=== PATIENT | male | born 1995 | race African-American/Black ===

== ENCOUNTER 2017-11-16 14:53 | Emergency (ER) | payer BC ==
[2017-11-16] MEDS ORDERED: CYCLOBENZAPRINE 10 MG TAB ONE (15:56)
[2017-11-16] MEDS ORDERED: HYDROCODONE/APAP 10/325 TAB ONE (15:57)
[2017-11-16] MEDS ORDERED: IBUPROFEN 200 MG TAB PO ONE (15:57)
--- NOTE | 2017-11-16 17:46 | ER ---
Nurse's Notes [facility] Name: Dillon Bowers Jr Age: 22 yrs Sex: Male : 1995 Arrival Date: 11/16/2017 Time: 14:56 Bed 27 Private MD: Holden Arredondo R Diagnosis: Low back pain Presentation: 11/16 15:13 Presenting complaint: Patient states: Patient states he was working on laying concrete ae1 and felt a 'pop" in his lower back and is now experiencing severe pain. Transition of care: patient was not received from another setting of care. Onset of symptoms was November 16, 2017 at 13:00. Risk Assessment: Do you want to hurt yourself or someone else? Patient reports no desire to harm self or others. 15:13 Method Of Arrival: Wheelchair ae1 15:13 Acuity: AMBAR 4 ae1 15:16 Initial Sepsis Screen: Does the patient meet any 2 criteria? No. Patient's initial ae1 sepsis screen is negative. Does the patient have a suspected source of infection? No. Patient's initial sepsis screen is negative. Care prior to arrival: None. Triage Assessment: 15:17 General: Appears in no apparent distress. uncomfortable, Behavior is cooperative, ae1 anxious. Pain: Complains of pain in lumbar area, left low back, left mid back, right mid back and right low back Pain currently is 10 out of 10 on a pain scale. Quality of pain is described as spasms. Musculoskeletal: no visible deformity or swelling. 16:00 EENT: No deficits noted. Neuro: Level of Consciousness is alert, obeys commands, rk2 Oriented to person, place, time, situation. Respiratory: Airway is patent Respiratory effort is even, unlabored, Respiratory pattern is regular, symmetrical. Derm: Skin is pink, warm \\T\\ dry. Historical: - Allergies: 15:15 No Known Allergies; ae1 - Home Meds: 15:15 None [Active]; ae1 - PMHx: 15:15 None; ae1 - PSHx: 15:15 oral surgery; ae1 - Immunization history:: Flu vaccine is not up to date. - Social history:: Smoking status: Patient uses tobacco products, smokes one pack cigarettes per day. - Ebola Screening: : Patient negative for fever greater than or equal to 101.5 degrees Fahrenheit, and additional compatible Ebola Virus Disease symptoms Patient denies exposure to infectious person. Screenin:16 Abuse screen: Denies threats or abuse. Nutritional screening: No deficits noted. ae1 Tuberculosis screening: No symptoms or risk factors identified. Fall Risk None identified. Assessment: 16:30 Neuro: No deficits noted. Level of Consciousness is alert, obeys commands, Oriented to rk2 person, place, time, situation. 16:30 Respiratory: Airway is patent Trachea midline Respiratory effort is even, unlabored, rk2 Respiratory pattern is regular, symmetrical. Derm: Skin is pink, warm \\T\\ dry. Musculoskeletal: Reports pain in back and right low back and right mid back and left mid back and left low back and lumbar area. 16:50 Reassessment: Pt. taken to xray. rk2 17:03 Reassessment: Pt. returned from CT. rk2 Vital Signs: 15:14 BP 112 / 83; Pulse 92; Resp 19; Temp 98(O); Pulse Ox 100% on R/A; Weight 117.93 kg (R); ae1 Pain 10/10; 18:00 BP 124 / 62; Pulse 88; Resp 17; Pulse Ox 99% on R/A; rk2 ED Course: 14:56 Patient arrived in ED. mr 14:56 Holden Arredondo MD is Private Physician. mr 15:14 Triage completed. ae1 15:16 Arm band placed on right wrist. ae1 15:20 Dee Gracia, [place] is Primary Nurse. rk2 15:21 Perry Oropeza NP is PHCP. pm1 15:21 Tino Barone MD is Attending Physician. pm1 16:01 Patient has correct armband on for positive identification. Bed in low position. Call rk2 light in reach. Side rails up X2. 16:48 Lumbar Spine (3 Views) XRAY Sent. rk2 18:17 No provider procedures requiring assistance completed. Patient did not have IV access rk2 during this emergency room visit. 18:31 Lumbar Spine (3 Views) XRAY In Process Unspecified. EDMS Administered Medications: 15:59 Drug: Ibuprofen 600 mg Route: PO; rk2 18:10 Follow up: Response: No adverse reaction rk2 16:00 Drug: [place] 10 mg-325 mg 1 tabs Route: PO; rk2 18:11 Follow up: Response: No adverse reaction rk2 16:00 Drug: Flexeril 10 mg Route: PO; rk2 18:10 Follow up: Response: No adverse reaction rk2 Outcome: 17:46 Discharge ordered by . pm1 18:17 Discharged to home via wheelchair. rk2 18:17 Condition: good 18:17 Discharge instructions given to patient, Prescriptions given X 3. 18:20 Patient left the ED. rk2 Signatures: Dispatcher [employer] Karma Hodge JohnnaPerry, RODERICK BULK PICKER pm1 Parveen Justin, [place] RN ae1 Dee Gracia RN RN rk2 Corrections: (The following items were deleted from the chart) 15:16 15:14 Pulse 92bpm; Resp 19bpm; Pulse Ox 100% RA; Temp 98F Oral; 117.93 kg Reported; ae1 Pain 04/02; ae1
--- NOTE | 2017-11-16 17:46 | EDPHYS ---
Physician Documentation [facility] Name: Dillon Bowers Jr Age: 22 yrs Sex: Male : 1995 Arrival Date: 11/16/2017 Time: 14:56 Bed 27 Private MD: Holden Arredondo R ED Physician Tino Barone HPI: 11/16 16:02 This 22 yrs old Black Male presents to ER via Wheelchair with complaints of Low Back pm1 Pain. 16:02 The patient presents with pain that is acute. The symptoms are located in the low back. pm1 Onset: The symptoms/episode began/occurred yesterday. The pain does not radiate. Associated signs and symptoms: Pertinent negatives: abdominal pain, chest pain, dysuria, fever, numbness, tingling, weakness. The problem was sustained when bending over. Modifying factors: The patient symptoms are alleviated by remaining still, specific position, the patient symptoms are aggravated by bending, movement. Severity of symptoms: in the emergency department the symptoms are actually worse. The patient has not experienced similar symptoms in the past. Patient lifting concrete bags yesterday and noticed a little soreness in his back. Today patient was getting off a ladder and felt a pop in his lower back in the same area of soreness. No incontinence, numbness, tingling, or radiation of pain. Historical: - Allergies: 15:15 No Known Allergies; ae1 - Home Meds: 15:15 None [Active]; ae1 - PMHx: 15:15 None; ae1 - PSHx: 15:15 oral surgery; ae1 - Immunization history:: Flu vaccine is not up to date. - Social history:: Smoking status: Patient uses tobacco products, smokes one pack cigarettes per day. - Ebola Screening: : Patient negative for fever greater than or equal to 101.5 degrees Fahrenheit, and additional compatible Ebola Virus Disease symptoms Patient denies exposure to infectious person. ROS: 16:02 Constitutional: Negative for fever, chills, and weight loss, Eyes: Negative for injury, pm1 pain, redness, and discharge, ENT: Negative for injury, pain, and discharge, Neck: Negative for injury, pain, and swelling, Cardiovascular: Negative for chest pain, palpitations, and edema, Respiratory: Negative for shortness of breath, cough, wheezing, and pleuritic chest pain, Abdomen/GI: Negative for abdominal pain, nausea, vomiting, diarrhea, and constipation. 16:02 : Negative for injury, bleeding, discharge, and swelling, MS/Extremity: Negative for injury and deformity, Skin: Negative for injury, rash, and discoloration, Neuro: Negative for headache, weakness, numbness, tingling, and seizure. 16:02 Back: Positive for of the lumbar area, Pain. Exam: 16:02 Constitutional: This is a well developed, well nourished patient who is awake, alert, pm1 and in no acute distress. Head/Face: Normocephalic, atraumatic. Chest/axilla: Normal chest wall appearance and motion. Nontender with no deformity. No lesions are appreciated. Cardiovascular: Regular rate and rhythm with a normal S1 and S2. No gallops, murmurs, or rubs. Normal PMI, no JVD. No pulse deficits. Respiratory: Lungs have equal breath sounds bilaterally, clear to auscultation and percussion. No rales, rhonchi or wheezes noted. No increased work of breathing, no retractions or nasal flaring. Abdomen/GI: Soft, non-tender, with normal bowel sounds. No distension or tympany. No guarding or rebound. No evidence of tenderness throughout. 16:02 Skin: Warm, dry with normal turgor. Normal color with no rashes, no lesions, and no evidence of cellulitis. MS/ Extremity: Pulses equal, no cyanosis. Neurovascular intact. Full, normal range of motion. 16:02 Back: pain, of the lumbar area, normal spinal alignment noted, muscle spasm, is appreciated in the left low back. 16:02 Neuro: Orientation: is normal, Motor: is normal, moves all fours, strength is 5/5 in all extremities, Sensation: is normal, no obvious gross deficits, Deep tendon reflexes are 2+ (normal) in the right patellar, right Achilles, left patellar and left Achilles. Vital Signs: 15:14 BP 112 / 83; Pulse 92; Resp 19; Temp 98(O); Pulse Ox 100% on R/A; Weight 117.93 kg (R); ae1 Pain 10/10; 18:00 BP 124 / 62; Pulse 88; Resp 17; Pulse Ox 99% on R/A; rk2 MDM: 15:42 Patient medically screened. pm1 16:07 Data reviewed: vital signs. Data interpreted: Pulse oximetry: on room air is 100 %. pm1 Interpretation: normal. 17:44 Counseling: I had a detailed discussion with the patient and/or guardian regarding: the pm1 historical points, exam findings, and any diagnostic results supporting the discharge/admit diagnosis, radiology results, the need for outpatient follow up, For MRI of back if no improvement in symptoms, to return to the emergency department if symptoms worsen or persist or if there are any questions or concerns that arise at home. 11/16 15:51 Order name: Lumbar Spine (3 Views) XRAY pm1 Administered Medications: 15:59 Drug: Ibuprofen 600 mg Route: PO; rk2 18:10 Follow up: Response: No adverse reaction rk2 16:00 Drug: [place] 10 mg-325 mg 1 tabs Route: PO; rk2 18:11 Follow up: Response: No adverse reaction rk2 16:00 Drug: Flexeril 10 mg Route: PO; rk2 18:10 Follow up: Response: No adverse reaction rk2 Disposition: 18:45 Co-signature as Attending Physician, Tino Barone MD I agree with the assessment and kdr plan of care. Disposition: 11/16/17 17:46 Discharged to Home. Impression: Low back pain. - Condition is Stable. - Discharge Instructions: Back Pain, Adult, Back Injury Prevention, [id number]. - Prescriptions for Naprosyn 500 mg Oral Tablet - take 1 tablet by ORAL route 2 times per day take with food; 30 tablet. Tylenol- Codeine #3 300-30 mg Oral Tablet - take 2 tablets by ORAL route every 6 hours As needed; 20 tablet. Cyclobenzaprine 10 mg Oral Tablet - take 1 tablet by ORAL route every 8 hours As needed; 30 tablet. - Medication Reconciliation Form, Thank You Letter, Prescription Opioid Use form. - Follow up: Emergency Department; When: As needed; Reason: Worsening of condition. Follow up: Private Physician; When: 2 - 3 days; Reason: Recheck today's complaints, Continuance of care, Re-evaluation by your physician. - Problem is new. - Symptoms have improved. Signatures: Dispatcher [employer] EDMS Tino Barone MD MD kdr Marinas, Patrick, RODERICK LIBRARY SALES CONSULTANT pm1 Parveen Justin RN RN ae1 Dee Gracia RN RN rk2 Corrections: (The following items were deleted from the chart) 18:20 17:46 11/16/2017 17:46 Discharged to Home. Impression: Low back pain. Condition is rk2 Stable. Forms are Medication Reconciliation Form, Thank You Letter, Antibiotic Education, Prescription Opioid Use. Follow up: Emergency Department; When: As needed; Reason: Worsening of condition. Follow up: Private Physician; When: 2 - 3 days; Reason: Recheck today's complaints, Continuance of care, Re-evaluation by your physician. Problem is new. Symptoms have improved. pm1
[2017-11-16 18:28] VITALS: TEMP 98
[2017-11-16 18:29] VITALS: BP 124/62; O2SAT 99
--- NOTE | 2017-11-16 19:04 | RAD REPORT ---
EXAM DESCRIPTION: Lumbar Spine 3 Views CLINICAL HISTORY: Radiculopathy COMPARISON: None. FINDINGS: Vertebral body heights appear maintained. No compression fracture noted. Disc spaces are m aintained. No spondylolysis or spondylolisthesis. IMPRESSION: Negative study.
== END 2017-11-16 18:20 | disposition home or self-care (01) ==
LOC: ER 14:53
DX: M54.5 Low back pain (principal); F17.210 Nicotine dependence, cigarettes, uncomplicated
CPT/HCPCS: 72100; 99283

== ENCOUNTER 2017-11-17 14:18 | Emergency (ER) | payer BC ==
[2017-11-17] MEDS ORDERED: DIAZEPAM 5 MG TABLET ONE (15:21)
[2017-11-17] MEDS ORDERED: DEXAMETHASONE 10 MG/ML VIAL ONE (15:21)
[2017-11-17] MEDS ORDERED: KETOROLAC 30 MG/ML INJ ONE (15:21)
--- NOTE | 2017-11-17 16:18 | ER ---
Nurse's Notes [facility] Name: Dillon Bowers Jr Age: 22 yrs Sex: Male : 1995 Arrival Date: 11/17/2017 Time: 14:19 Bed 17 Private MD: Holden Arredondo R Diagnosis: Sciatica Presentation: 11/17 14:40 Presenting complaint: Patient states: Low back pain that started yesterday. Patient aj seen in this ER yesterday and DX with radiculopathy, sent home with RX. Transition of care: patient was not received from another setting of care. Onset of symptoms was November 16, 2017. Risk Assessment: Do you want to hurt yourself or someone else? Patient reports no desire to harm self or others. Care prior to arrival: None. 14:40 Method Of Arrival: Wheelchair aj 14:40 Acuity: AMBAR 4 aj 15:50 Initial Sepsis Screen: Does the patient meet any 2 criteria? No. Patient's initial em sepsis screen is negative. Does the patient have a suspected source of infection? No. Patient's initial sepsis screen is negative. Triage Assessment: 14:42 General: Appears in no apparent distress. uncomfortable, Behavior is calm, cooperative, aj appropriate for age. Pain: Complains of pain in low back area and buttocks. Neuro: Level of Consciousness is awake, alert, obeys commands, Oriented to person, place, time, situation, Appropriate for age. Respiratory: Airway is patent Respiratory effort is even, unlabored, Respiratory pattern is regular, symmetrical. Derm: Skin is intact, is healthy with good turgor, Skin is pink, warm \T\ dry. normal. Musculoskeletal: Circulation, motion, and sensation intact. Reports pain in low back area and buttocks. Historical: - Allergies: 14:42 No Known Allergies; aj - Home Meds: 14:42 None [Active]; aj - PMHx: 14:42 None; aj - PSHx: 14:42 oral surgery; aj - Immunization history:: Adult Immunizations up to date. - Social history:: Smoking status: Patient uses tobacco products, smokes one pack cigarettes per day. - Ebola Screening: : No symptoms or risks identified at this time. Screenin:49 Abuse screen: Denies threats or abuse. Nutritional screening: No deficits noted. em Tuberculosis screening: No symptoms or risk factors identified. Fall Risk None identified. Assessment: 14:50 General: Appears uncomfortable, Behavior is cooperative. Pain: Complains of pain in low em back area Pain radiates to right leg and left leg Pain currently is 10 out of 10 on a pain scale. Neuro: Level of Consciousness is awake, alert, obeys commands, Oriented to person, place, time, situation, Gait is unsteady, Tingling in right quadriceps and left quadriceps. Cardiovascular: Capillary refill < 3 seconds Patient's skin is warm and dry. Respiratory: Airway is patent Respiratory effort is even, unlabored, Respiratory pattern is regular, symmetrical. GI: Abdomen is round non-distended. : No signs and/or symptoms were reported regarding the genitourinary system. EENT: No signs and/or symptoms were reported regarding the EENT system. Derm: Skin is intact, Skin is pink, warm \T\ dry. Musculoskeletal: Range of motion: intact in all extremities. 15:10 Reassessment: Patient appears in no apparent distress at this time. I agree with above iw assessment by Irineo Mercedes LVN. 15:35 Reassessment: Patient appears in no apparent distress at this time. Patient and/or em family updated on plan of care and expected duration. Pain level reassessed. Patient is alert, oriented x 3, equal unlabored respirations, skin warm/dry/pink. Dr. Jones at bedside discussing POC. 16:21 Reassessment: Patient appears in no apparent distress at this time. Patient and/or em family updated on plan of care and expected duration. Pain level reassessed. Patient is alert, oriented x 3, equal unlabored respirations, skin warm/dry/pink. pt ambulated to restroom, tolerated well, c/o minimal pain. Vital Signs: 14:42 BP 114 / 70; Pulse 78; Resp 16; Temp 97.6; Pulse Ox 97% on R/A; Weight 117.93 kg; aj Height 5 ft. 10 in. (177.80 cm); Pain 9/10; 15:48 BP 123 / 79; Pulse 75; Resp 18; Pulse Ox 100% on R/A; em 14:42 Body Mass Index 37.31 (117.93 kg, 177.80 cm) ED Course: 14:19 Patient arrived in ED. mr 14:19 Holden Arredondo MD is Private Physician. mr 14:42 Triage completed. aj 14:42 Arm band placed on right wrist. Patient placed in an exam room. aj 14:45 Irineo Mercedes LVN is Primary Nurse. em 15:02 Maco Jones MD is Attending Physician. ps1 15:49 No provider procedures requiring assistance completed. em 15:50 Patient has correct armband on for positive identification. Bed in low position. Call em light in reach. Side rails up X2. Adult w/ patient. 15:50 Patient did not have IV access during this emergency room visit. em 16:14 Holden Arredondo MD is Referral Physician. ps1 Administered Medications: 15:26 Drug: TORadol 30 mg Route: IM; Site: left deltoid; em 15:47 Follow up: Response: No adverse reaction em 15:27 Drug: Decadron 10 mg Route: IM; Site: left deltoid; em 15:47 Follow up: Response: No adverse reaction; Pain is decreased em 15:28 Drug: Valium 5 mg Route: PO; em 15:47 Follow up: Response: No adverse reaction em Outcome: 16:17 Discharge ordered by MD. ps1 16:52 Discharge instructions given to patient, Instructed on discharge instructions, follow em up and referral plans. no drinking with medication, no driving heavy equipment, medication usage, Demonstrated understanding of instructions, follow-up care, medications, Prescriptions given X 3. 16:52 Discharged to home ambulatory. em 16:52 Condition: good 16:54 Patient left the ED. em Signatures: Fallon Paez RN RN aj Rivera, Maria mr Irineo Mercedes LVN LVN em Kisha Beck RN RN Maco Jones MD MD ps1
--- NOTE | 2017-11-17 16:18 | EDPHYS ---
Physician Documentation [facility] Name: Dillon Bowers Jr Age: 22 yrs Sex: Male : 1995 Arrival Date: 11/17/2017 Time: 14:19 Bed 17 Private MD: Holden Arredondo R ED Physician Maco Jones HPI: 11/17 16:24 This 22 yrs old Black Male presents to ER via Wheelchair with complaints of Back Pain. ps1 16:24 patient was working on concrete and framework in a house appx 3 days ago. Pain started ps1 after exertion. Pain localized to lower back radiating down both legs. Rated as moderate worse with ambulation. No fever, IVDA, immunocompromise, trauma. . Historical: - Allergies: 14:42 No Known Allergies; aj - Home Meds: 14:42 None [Active]; aj - PMHx: 14:42 None; aj - PSHx: 14:42 oral surgery; aj - Immunization history:: Adult Immunizations up to date. - Social history:: Smoking status: Patient uses tobacco products, smokes one pack cigarettes per day. - Ebola Screening: : No symptoms or risks identified at this time. ROS: 16:24 Constitutional: Negative for fever, chills, and weight loss, Eyes: Negative for injury, ps1 pain, redness, and discharge, Cardiovascular: Negative for chest pain, palpitations, and edema, Respiratory: Negative for shortness of breath, cough, wheezing, and pleuritic chest pain, Abdomen/GI: Negative for abdominal pain, nausea, vomiting, diarrhea, and constipation. 16:24 : Negative for injury, bleeding, discharge, and swelling, MS/Extremity: Negative for injury and deformity, Skin: Negative for injury, rash, and discoloration, Neuro: Negative for headache, weakness, numbness, tingling, and seizure. 16:24 Back: Positive for decreased range of motion. Exam: 16:24 Constitutional: This is a well developed, well nourished patient who is awake, alert, ps1 and in no acute distress. Head/Face: Normocephalic, atraumatic. Eyes: Pupils equal round and reactive to light, extra-ocular motions intact. Lids and lashes normal. Conjunctiva and sclera are non-icteric and not injected. Chest/axilla: Normal chest wall appearance and motion. Nontender with no deformity. No lesions are appreciated. Cardiovascular: Regular rate and rhythm. No gallops, murmurs, or rubs. Normal PMI, no JVD. No pulse deficits. Respiratory: Lungs have equal breath sounds bilaterally, clear to auscultation and percussion. No rales, rhonchi or wheezes noted. No increased work of breathing, no retractions or nasal flaring. Abdomen/GI: Soft, non-tender, with normal bowel sounds. No distension or tympany. No guarding or rebound. No evidence of tenderness throughout. 16:24 Back: pain, that is moderate, ROM is painful, normal spinal alignment noted, muscle spasm, is appreciated in the left low back and right low back. Vital Signs: 14:42 BP 114 / 70; Pulse 78; Resp 16; Temp 97.6; Pulse Ox 97% on R/A; Weight 117.93 kg; aj Height 5 ft. 10 in. (177.80 cm); Pain 9/10; 15:48 BP 123 / 79; Pulse 75; Resp 18; Pulse Ox 100% on R/A; em 14:42 Body Mass Index 37.31 (117.93 kg, 177.80 cm) aj MDM: 16:00 Patient medically screened. ps1 16:24 Data reviewed: vital signs, nurses notes. ED course: patient pain improved and was able ps1 to ambulate on own accord. . Administered Medications: 15:26 Drug: TORadol 30 mg Route: IM; Site: left deltoid; em 15:47 Follow up: Response: No adverse reaction em 15:27 Drug: Decadron 10 mg Route: IM; Site: left deltoid; em 15:47 Follow up: Response: No adverse reaction; Pain is decreased em 15:28 Drug: Valium 5 mg Route: PO; em 15:47 Follow up: Response: No adverse reaction em Disposition: 11/17/17 16:17 Discharged to Home. Impression: Sciatica. - Condition is Fair. - Discharge Instructions: Sciatica. - Prescriptions for Anaprox DS 550 mg Oral Tablet - take 1 tablet by ORAL route every 12 hours As needed; 20 tablet. Robaxin 500 mg Oral Tablet - take 2 tablet by ORAL route every 6 hours As needed; 40 tablet. Medrol (Adan) 4 mg Oral Tablets, Dose Pack - take 1 tablet by ORAL route as directed - follow package instructions; 1 packet. - Work release form, Medication Reconciliation Form, Thank You Letter, Antibiotic Education, Prescription Opioid Use form. - Follow up: Holden Arredondo MD; When: As needed; Reason: Further diagnostic work-up, Recheck today's complaints, Continuance of care, Re-evaluation by your physician. Follow up: Emergency Department; When: As needed; Reason: Worsening of condition, abnormalities in urination, defecation, or fever. . - Problem is new. - Symptoms have improved. Signatures: Fallon Paez, RN RN aj Irineo Mercedes, INSIDE PLANT SUPERVISOR INSIDE PLANT SUPERVISOR em Maco Jones MD MD ps1 Corrections: (The following items were deleted from the chart) 16:54 16:17 11/17/2017 16:17 Discharged to Home. Impression: Sciatica. Condition is Fair. em Forms are Medication Reconciliation Form, Thank You Letter, Antibiotic Education, Prescription Opioid Use. Follow up: Holden Arredondo; When: As needed; Reason: Further diagnostic work-up, Recheck today's complaints, Continuance of care, Re-evaluation by your physician. Follow up: Emergency Department; When: As needed; Reason: Worsening of condition, abnormalities in urination, defecation, or fever. . Problem is new. Symptoms have improved. ps1
[2017-11-17 17:18] VITALS: BP 123/79; TEMP 97.6; O2SAT 100
== END 2017-11-17 16:54 | disposition home or self-care (01) ==
LOC: ER 14:18
DX: M54.30 Sciatica, unspecified side (principal); F17.210 Nicotine dependence, cigarettes, uncomplicated
CPT/HCPCS: 96372; 99283; J1100

== ENCOUNTER 2019-07-27 13:36 | Emergency (ER) | payer BC, SELFPAY ==
[2019-07-27] MEDS ORDERED: MORPHINE 4 MG/ML SYR ONE ×2 (14:43→15:54)
[2019-07-27] MEDS ORDERED: BUPIVACAINE 0.5% PF 10 ML VIAL ONE (14:43)
[2019-07-27] MEDS ORDERED: ONDANSETRON 4 MG/2 ML VIAL ONE (14:43)
[2019-07-27] MEDS ORDERED: LIDOCAINE 1% MPF 30 ML VIAL ONE (14:44)
[2019-07-27] MEDS ORDERED: CLINDAMYCIN 900MG/D5W 900 MG/50 ML IVPB IV ONE (15:00)
[2019-07-27] MEDS ORDERED: NA CHLORIDE 0.9% 1,000 ML ONE (15:00)
[2019-07-27 15:16] LABS: Absolute Lymphocytes (CBC) 2.7 K/uL (0.7-4.9); Basophils % 0.9 % (0-1.3); Hematocrit 49.1 % (39.6-49.0); Lymphocytes % 22.4 % (15.3-44.8); MPV 8.9 fL (7.6-11.3); RBC Red Blood Cell Count 5.76 M/uL (4.33-5.43)
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
--- NOTE | 2019-07-27 15:42 | EDPHYS ---
Physician Documentation [facility] Name: Dillon Bowers Jr Age: 24 yrs Sex: Male : 1995 Arrival Date: 07/27/2019 Time: 13:38 Bed 17 Private MD: ED Physician Tino Barone HPI: 07/27 14:40 This 24 yrs old Black Male presents to ER via Ambulatory with complaints of Abscess, cp Facial Swelling. 14:40 Description: swollen, right facial cheek. Onset: The symptoms/episode began/occurred cp this morning, upon awakening. Possible cause(s): unknown. Associated signs and symptoms: Pertinent positives: right upper tooth pain, Pertinent negatives: discharge, drainage, fever. Historical: - Allergies: 13:56 No Known Allergies; ch - Home Meds: 13:56 None [Active]; ch - PMHx: 13:56 None; ch - Immunization history:: Adult Immunizations up to date, Last tetanus immunization: up to date Flu vaccine is not up to date. - Coronavirus screen:: The patient has NOT traveled to [place], [place], or [place] in the past 14 days. The patient has NOT had contact with known/suspected case of Coronavirus?. - Social history:: Smoking status: Patient denies any tobacco usage or history of. - Ebola Screening: : Patient negative for fever greater than or equal to 101.5 degrees Fahrenheit, and additional compatible Ebola Virus Disease symptoms Patient denies exposure to infectious person Patient denies travel to an Ebola-affected area in the 21 days before illness onset No symptoms or risks identified at this time. ROS: 14:45 Constitutional: Negative for body aches, chills, fever, poor PO intake. cp 14:45 Eyes: Negative for injury, pain, redness, and discharge. cp 14:45 ENT: Positive for Teeth pain Negative for drainage from ear(s), ear pain, sinus congestion, sinus pain, sore throat, difficulty swallowing, difficulty handling secretions. 14:45 Cardiovascular: Negative for chest pain, palpitations. 14:45 Respiratory: Negative for cough, shortness of breath, wheezing. 14:45 Abdomen/GI: Negative for abdominal pain, nausea, vomiting, and diarrhea. 14:45 Skin: Positive for swelling, of the right facial cheek. 14:45 Neuro: Negative for altered mental status, headache. 14:45 All other systems are negative. Exam: 14:55 Constitutional: The patient appears in no acute distress, alert, awake, non-toxic, well cp developed, well nourished, uncomfortable. 14:55 Head/face: Exam is negative for obvious evidence of injury or deformity, Noted is cp swelling, that is mild, of the right cheek, tenderness, that is moderate, of the right cheek. 14:55 Eyes: Periorbital structures: appear normal, Pupils: equal, round, and reactive to light and accomodation, Extraocular movements: intact throughout, Conjunctiva: normal, no exudate, no injection, Sclera: no appreciated abnormality, Lids and lashes: appear normal, bilaterally. 14:55 ENT: External ear(s): are unremarkable, Ear canal(s): are normal, clear, TM's: bulging, is not appreciated, bilaterally, dullness, bilaterally, erythema, is not appreciated, bilaterally, Nose: is normal, Mouth: Lips: moist, Oral mucosa: pink and intact, moist, abscess, that is moderate, of the gums, Posterior pharynx: Airway: no evidence of obstruction, patent, Tonsils: are normal in appearance, Dental exam: dental caries, that is moderate, fractured teeth are noted, specifically the upper right second bicuspid (#4), pain, that is moderate, specifically in the upper right second bicuspid (#4), Voice: is normal. 14:55 Neck: ROM/movement: is normal, is supple, without pain, no range of motions limitations, no nuchal rigidity. 14:55 Chest/axilla: Inspection: normal, Palpation: is normal, no crepitus, no tenderness. 14:55 Cardiovascular: Rate: normal, Rhythm: regular. 14:55 Respiratory: the patient does not display signs of respiratory distress, Respirations: normal, no use of accessory muscles, labored breathing, is not present, Breath sounds: are clear throughout, no decreased breath sounds, no stridor, no wheezing. 14:55 Abdomen/GI: Exam negative for discomfort, distension, guarding, Inspection: abdomen appears normal. 14:55 Skin: no rash present. Vital Signs: 13:56 BP 125 / 90; Pulse 77; Resp 16; Temp 98.3(O); Pulse Ox 99% on R/A; Weight 122.47 kg; ch Height 6 ft. (182.88 cm); Pain 8/10; 15:07 BP 134 / 92; Pulse 81; Resp 16; Pulse Ox 100% ; bp 16:02 BP 157 / 91; Pulse 70; Resp 16; Pulse Ox 100% ; bp 13:56 Body Mass Index 36.62 (122.47 kg, 182.88 cm) Procedures: 15:45 I \T\ D: Incision and drainage was performed for an abscess of the right upper outer cp gumline Anesthetized with 4 ccs of 1% lidocaine w/o epi and 0.5% Marcaine. Incised with #11 blade. Drained small amount purulent fluid. the patient tolerated the procedure well. MDM: 14:07 Patient medically screened. cp 15:40 Data reviewed: vital signs, nurses notes, lab test result(s). cp 15:40 Differential diagnosis: abscess, cellulitis. Counseling: I had a detailed discussion cp with the patient and/or guardian regarding: the historical points, exam findings, and any diagnostic results supporting the discharge/admit diagnosis, radiology results, the need for outpatient follow up, for definitive care, a dentist, to return to the emergency department if symptoms worsen or persist or if there are any questions or concerns that arise at home. Response to treatment: the patient's symptoms have markedly improved after treatment, and as a result, I will discharge patient. 02 14:41 Order name: CBC with Diff 07/27 14:41 Order name: BMP 07/27 15:27 Order name: CBC with Automated Diff; Complete Time: 15:42 [facility] 07/27 15:42 Interpretation: Normal except: WBC 11.9; RBC 5.76; HCT 49.1. cp / 15:48 Order name: Basic Metabolic Panel [facility] 07/27 14:41 Order name: IV; Complete Time: 14:54 cp Administered Medications: 14:50 Drug: NS 0.9% 1000 ml Route: IV; Rate: 1 bolus; Site: right antecubital; bp 15:55 Follow up: IV Status: Completed infusion; IV Intake: 1000ml bp 14:50 Drug: morphine 4 mg Route: IVP; Site: right antecubital; bp 15:54 Follow up: Response: Pain is decreased bp 14:50 Drug: Zofran 4 mg Route: IVP; Site: right antecubital; bp 15:54 Follow up: Response: No adverse reaction bp 14:50 Drug: Clindamycin 900 mg Route: IVPB; Infused Over: 30 mins; Site: right antecubital; bp 15:55 Follow up: IV Status: Completed infusion; IV Intake: 50ml bp 15:06 Drug: Lidocaine (1 %) 5 mg {Note: at b/s for provider.} Route: Infiltration; bp 15:06 Drug: Marcaine (0.5 %) 5 ml {Note: at b/s for provider.} Volume: 10 ml; Route: bp Infiltration; 15:54 Not Given (Other Intervention Used): HYDROcodone-acetaminophen 5 mg-325 mg 2 tabs PO bp once; RASS on ADMIN: Combtv4, Very Agttd3, Agttd2, Rstlss1, AlertClm0, Drwsy-1, Lt Sdtn-2, Mod Sdtn-3, Dp Sdtn-4, UnArsble-5 15:54 Drug: morphine 4 mg Route: IVP; Site: right antecubital; bp 15:55 Follow up: Response: Pain is decreased bp Disposition: 16:15 Chart complete. 07/28 14:55 Co-signature as Attending Physician, Tino Barone MD I agree with the assessment and kdr plan of care. Disposition: 07/27/19 15:41 Discharged to Home. Impression: Localized swelling, mass and lump of skin and subcutaneous tissue - right facial cheek, Tooth #4 abscess. - Condition is Stable. - Discharge Instructions: Dental Abscess. - Prescriptions for Clindamycin HCl 300 mg Oral Capsule - take 1 capsule by ORAL route every 6 hours for 10 days; 40 capsule. Tylenol- Codeine #3 300-30 mg Oral Tablet - take 2 tablets by ORAL route every 6 hours As needed; 20 tablet. - Medication Reconciliation Form, Thank You Letter, Antibiotic Education, Prescription Opioid Use form. - Follow up: Hai Mcgee DDS; When: 2 - 3 days; Reason: Recheck today's complaints. - Problem is new. - Symptoms have improved. Signatures: Dispatcher [employer] aMrilee Fry, Tino Bauer RN, ch, MD MD kdr Page, Corey, PA PA cp Peltier, Brian, RN RN bp Corrections: (The following items were deleted from the chart) 07/27 16:05 15:41 07/27/2019 15:41 Discharged to Home. Impression: Localized swelling, mass and bp lump of skin and subcutaneous tissue - right facial cheek; Tooth #4 abscess. Condition is Stable. Forms are Medication Reconciliation Form, Thank You Letter, Antibiotic Education, Prescription Opioid Use. Follow up: Hai Mcgee; When: 2 - 3 days; Reason: Recheck today's complaints. Problem is new. Symptoms have improved. cp
[2019-07-27 15:47] LABS: BUN Blood Urea Nitrogen 13 mg/dL (7-18); Bicarbonate 27 mmol/L (21-32); Glucose Level 72 mg/dL (74-106); Potassium 4.3 mmol/L (3.5-5.1); Sodium Level 138 mmol/L (136-145)
[2019-07-27 16:18] VITALS: TEMP 98.3
[2019-07-27 16:20] VITALS: O2SAT 100
[2019-07-27 16:23] VITALS: BP 157/91
== END 2019-07-27 16:05 | disposition home or self-care (01) ==
LOC: ER 13:36
PROC: 0C95XZZ Drainage of Upper Gingiva, External Approach (ICD-10-PCS; principal; 2019-07-27)
DX: K04.7 Periapical abscess without sinus (principal)
CPT/HCPCS: 36415; 80048; 85025; 96365; 96375; 99284; J2405; J7030

== ENCOUNTER 2020-02-28 23:35 | Emergency (ER) | payer SELFPAY ==
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
[2020-02-29] MEDS ORDERED: HYDROCODONE/APAP 5/325 MG TAB ONE (00:16)
[2020-02-29] MEDS ORDERED: KETOROLAC 30 MG/ML INJ ONE (00:16)
[2020-02-29 21:58] VITALS: BP 117/70; TEMP 97.7; O2SAT 97
== END 2020-02-29 00:27 | disposition home or self-care (01) ==
LOC: ER 23:35
DX: T21.54XA Corrosion of first degree of lower back, initial encounter (principal); T65.91XA Toxic effect of unspecified substance, accidental (unintentional), initial encounter; Y93.9 Activity, unspecified; Y92.89 Other specified places as the place of occurrence of the external cause
CPT/HCPCS: 96372; 99283

== ENCOUNTER 2020-07-03 11:37 | Emergency (ER) | payer SELFPAY ==
[2020-07-03] MEDS ORDERED: LIDOCAINE 1% MPF 5 ML VIAL ONE (12:19)
[2020-07-03] MEDS ORDERED: LIDOCAINE 1% 20 ML MDV ONE (12:21)
--- NOTE | 2020-07-03 12:35 | ER ---
Nurse's Notes [facility] Name: Dillon Bowers Jr Age: 25 yrs Sex: Male : 1995 Arrival Date: 07/03/2020 Time: 11:40 Bed 24 Private MD: Holden Arredondo R Diagnosis: Cutaneous abscess of head [any part, except face] Presentation: 07/03 11:52 Chief complaint: Patient states: Started coughing 2 days ago. I just got my son back ca1 and his mom got Covid. Abscess at back of head x 2 days. Coronavirus screen: Client denies travel out of the [place] in the last 14 days. cough unrelated to allergies, Client presents with at least one sign or symptom that may indicate coronavirus-19. Standard/surgical mask placed on the client. Provider contacted for isolation considerations. Ebola Screen: Patient negative for fever greater than or equal to 101.5 degrees Fahrenheit, and additional compatible Ebola Virus Disease symptoms Patient denies exposure to infectious person. Patient denies travel to an Ebola-affected area in the 21 days before illness onset. No symptoms or risks identified at this time. Initial Sepsis Screen: Does the patient meet any 2 criteria? No. Patient's initial sepsis screen is negative. Does the patient have a suspected source of infection? No. Patient's initial sepsis screen is negative. Risk Assessment: Do you want to hurt yourself or someone else? Patient reports no desire to harm self or others. Onset of symptoms was July 03, 2020. 11:52 Method Of Arrival: Ambulatory ca1 11:52 Acuity: AMBAR 3 ca1 Historical: - Allergies: 11:57 No Known Allergies; ca1 - Home Meds: 11:57 None [Active]; ca1 - PMHx: 11:57 None; ca1 - PSHx: 11:57 None; ca1 - Immunization history:: Flu vaccine is not up to date. - Social history:: Smoking status: Reported history of juuling and/or vaping. - Family history:: not pertinent. - Hospitalizations: : No recent hospitalization is reported. Screenin:13 Abuse screen: Denies threats or abuse. Denies injuries from another. Nutritional zb screening: No deficits noted. Tuberculosis screening: No symptoms or risk factors identified. Fall Risk None identified. Assessment: 12:11 General: Appears in no apparent distress. comfortable, Behavior is calm, cooperative, zb appropriate for age, Denies fever, feeling ill, fatigue, chills. Pain: Complains of pain in back of the head Pain radiates to down the neck Pain currently is 5 out of 10 on a pain scale. Quality of pain is described as tender. Neuro: Level of Consciousness is awake, alert, obeys commands, Oriented to person, place, time. Cardiovascular: Patient's skin is warm and dry. Respiratory: Airway is patent Respiratory effort is even, unlabored, Respiratory pattern is regular, symmetrical. GI: No signs and/or symptoms were reported involving the gastrointestinal system. : No signs and/or symptoms were reported regarding the genitourinary system. EENT: No signs and/or symptoms were reported regarding the EENT system. Derm: Skin is intact, is healthy with good turgor, Skin is dry, Skin is normal, Skin temperature is warm Abscess located on back of neck is nickel sized, has clear drainage, is red, is raised. Musculoskeletal: No signs and/or symptoms reported regarding the musculoskeletal system. Vital Signs: 11:52 BP 117 / 57; Pulse 83; Resp 16 S; Temp 97(TE); Pulse Ox 99% on R/A; Weight 115.67 kg ca1 (R); Height 5 ft. 7 in. (170.18 cm) (R); Pain 5/10; 11:52 Body Mass Index 39.94 (115.67 kg, 170.18 cm) ca1 ED Course: 11:40 Patient arrived in ED. ag5 11:41 Holden Arredondo MD is Private Physician. ag5 11:53 Jan Velasco MD is Attending Physician. rn 11:56 Triage completed. ca1 11:57 Arm band placed on right wrist. ca1 12:04 Catalina Grullon RN is Primary Nurse. zb 12:14 Patient has correct armband on for positive identification. Bed in low position. Call zb light in reach. Side rails up X 1. Pulse ox on. NIBP on. 12:51 Assist provider with I \T\ D: Set up I\T\D tray. Patient tolerated well. Patient did not zb have IV access during this emergency room visit. Administered Medications: 12:44 Drug: Lidocaine (1 %) 1 vials {Note: given by ECP .} Volume: 5 ml; Route: Infiltration; zb 12:50 Follow up: Response: No adverse reaction zb Outcome: 12:35 Discharge ordered by . rn 12:51 Discharged to home ambulatory. zb 12:51 Condition: stable 12:51 Discharge instructions given to patient, Instructed on discharge instructions, follow up and referral plans. medication usage, Demonstrated understanding of instructions, follow-up care, medications, Prescriptions given X 1. 12:51 Patient left the ED. zb Signatures: Jan Velasco MD MD rn Jodee, Angelika, RN RN ca1 Tru Wallace ag5 Catalina Grullon RN RN zb
--- NOTE | 2020-07-03 12:35 | EDPHYS ---
Physician Documentation [facility] Name: Dillon Bowers Jr Age: 25 yrs Sex: Male : 1995 Arrival Date: 07/03/2020 Time: 11:40 Bed 24 Private MD: Holden Arredondo R ED Physician Jan Velasco HPI: 07/03 12:05 This 25 yrs old Black Male presents to ER via Ambulatory with complaints of Boil. rn 12:05 The patient presents with an abscess of the scalp. Onset: The symptoms/episode rn began/occurred 2 day(s) ago. Possible cause(s): unknown. Modifying factors: the symptoms are alleviated by nothing, the symptoms are aggravated by pressure, squeezing the lesion and expressing the contents. Severity of symptoms: At their worst the symptoms were mild, in the emergency department the symptoms are unchanged. The patient has not experienced similar symptoms in the past. The patient has not recently seen a physician. Historical: - Allergies: 11:57 No Known Allergies; ca1 - Home Meds: 11:57 None [Active]; ca1 - PMHx: 11:57 None; ca1 - PSHx: 11:57 None; ca1 - Immunization history:: Flu vaccine is not up to date. - Social history:: Smoking status: Reported history of juuling and/or vaping. - Family history:: not pertinent. - Hospitalizations: : No recent hospitalization is reported. ROS: 12:05 Constitutional: Negative for fever, chills, and weight loss, Skin: + abscess on scalp, rn back of head/neck Exam: 12:05 Constitutional: This is a well developed, well nourished patient who is awake, alert, rn and in no acute distress. Skin: Warm, dry, 1.5 inch area of fluctuance and tenderness base of posterior scalp, has head to it Vital Signs: 11:52 BP 117 / 57; Pulse 83; Resp 16 S; Temp 97(TE); Pulse Ox 99% on R/A; Weight 115.67 kg ca1 (R); Height 5 ft. 7 in. (170.18 cm) (R); Pain 5/10; 11:52 Body Mass Index 39.94 (115.67 kg, 170.18 cm) ca1 Procedures: 12:33 I \T\ D: Incision and drainage was performed for an abscess of the scalp Prepped with rn Betadine, Anesthetized with 3 ml's 1% Lidocaine. Incised with #11 blade. Drained moderate amount purulent fluid. serosanguinous fluid. Packed with iodoform gauze, Dressing: sterile 4x4 gauze, the patient tolerated the procedure well. MDM: 11:53 Patient medically screened. rn 12:33 Differential diagnosis: abscess, cellulitis. Data reviewed: vital signs, nurses notes, rn and as a result, I will discharge patient. Counseling: I had a detailed discussion with the patient and/or guardian regarding: the historical points, exam findings, and any diagnostic results supporting the discharge/admit diagnosis, the need for outpatient follow up, to return to the emergency department if symptoms worsen or persist or if there are any questions or concerns that arise at home. Response to treatment: the patient's symptoms have markedly improved after treatment, and as a result, I will discharge patient. Special discussion: I discussed with the patient/guardian in detail that at this point there is no indication for admission to the hospital. It is understood, however, that if the symptoms persist or worsen the patient needs to return immediately for re-evaluation. 07/03 12:02 Order name: Incision \T\ Drainage Setup; Complete Time: 12:05 rn Administered Medications: 12:44 Drug: Lidocaine (1 %) 1 vials {Note: given by ECP .} Volume: 5 ml; Route: Infiltration; zb 12:50 Follow up: Response: No adverse reaction zb Disposition: 07/03/20 12:35 Discharged to Home. Impression: Cutaneous abscess of head [any part, except face]. - Condition is Stable. - Discharge Instructions: Skin Abscess, Incision and Drainage, Wound Packing. - Prescriptions for Clindamycin HCl 300 mg Oral Capsule - take 1 capsule by ORAL route every 6 hours for 10 days; 40 capsule. - Medication Reconciliation Form, Thank You Letter, Antibiotic Education, Prescription Opioid Use, Work release form form. - Follow up: Private Physician; When: 2 - 3 days; Reason: Wound Recheck, Recheck today's complaints, Re-evaluation by your physician. - Problem is new. - Symptoms have improved. Signatures: Dispatcher [employer] EDMS Jan Velasco MD MD rn Acob, Angelika, RN RN ca1 Brown, Catalina, RN RN zb Corrections: (The following items were deleted from the chart) 12:51 12:35 07/03/2020 12:35 Discharged to Home. Impression: Cutaneous abscess of head [any zb part, except face]. Condition is Stable. Forms are Medication Reconciliation Form, Thank You Letter, Antibiotic Education, Prescription Opioid Use. Follow up: Private Physician; When: 2 - 3 days; Reason: Wound Recheck, Recheck today's complaints, Re-evaluation by your physician. Problem is new. Symptoms have improved. rn
[2020-07-03 12:57] VITALS: BP 117/57; TEMP 97; O2SAT 99
== END 2020-07-03 12:51 | disposition home or self-care (01) ==
LOC: ER 11:37
PROC: 0J900ZZ Drainage of Scalp Subcutaneous Tissue and Fascia, Open Approach (ICD-10-PCS; principal; 2020-07-03)
DX: L02.811 Cutaneous abscess of head [any part, except face] (principal); Z20.822 Contact with and (suspected) exposure to COVID-19
CPT/HCPCS: 99284; U0003